=== PATIENT | male | born 1995 | race Caucasian/White ===

== ENCOUNTER 2018-03-27 17:42 | Emergency (ER) | payer BC ==
[~2018-03-27] VITALS: Ht 182.9 cm; Wt 110.8 kg
[2018-03-27 17:50] VITALS: BP 150/69; PULSE 98; TEMP 36.6; O2SAT 99; Ht 182.9 cm; Wt 110.8 kg
--- NOTE | 2018-03-27 18:45 | EMERGENCY ROOM VISIT NOTE ---
ED Visit Note First contact with patient: 18:03 CHIEF COMPLAINT: Right thigh pain HISTORY OF PRESENT ILLNESS: This 22-year-old male patient presents to the emergency department by private vehicle after sustaining an injury to the right posterior thigh/knee approximately 20 minutes ago. Patient states that he was lifting 675 lbs. at the gym, he felt a sudden pain and pop in his right posterior thigh. He believes that this is hamstring injury. Patient states that he had a hamstring strain in the same area last summer, states that he rested for a while and it got better. He did not do any physical therapy. The patient denies any other injuries besides their thigh. The patient denies any swelling or bruising. There is pain with walking, flexing and extending the knee. They rate the pain as constant, throbbing and 6/10. The patient states they are able to walk on it. No numbness or tingling. He denies any pain in the ankle, knee, or hip joint. He denies any other injuries. Patient states he is from [facility] in [facility] [employer] [facility] for graduation weekend. REVIEW OF SYSTEMS: A 6 system review of systems was completed with positives and pertinent negatives listed in the HPI. ALLERGIES: No known allergies MEDICATIONS: No active medications. PMH: No significant past medical or surgical history. SOCIAL HISTORY: Lives at home. Denies tobacco use, denies alcohol or recreational drug use. PHYSICAL EXAM: Vital Signs: Reviewed Nurse's notes, vital signs stable. GENERAL : Pleasant and cooperative, no acute distress, but appears in pain, well- developed, well-nourished. MENTAL STATUS: Alert, oriented to person place and time, and cooperative. MUSCULOSKELETAL: The right posterior thigh is tender on the lateral aspect just proximal to the knee joint. There is no obvious swelling. There is no erythema or ecchymosis. The right knee is not swollen. There is no joint effusion present. The patient is tender with flexion and extension of the knee. There is no joint line tenderness. Passive range of motion of the knee and hip without any pain. Strength of the quads is 5/5 and hamstrings is 4/5. There is no pain or instability with varus and valgus stressing. The foot and toes are warm and well-perfused. Dorsalis pedis pulse 2+. Sensation to pain and light touch is intact. Capillary refill less than 2 seconds. IMAGING: R KNEE 1 OR 2 VIEWS ROUTINE CLINICAL HISTORY: 22 years-old Male presenting with right posterior knee pain while lifting weights, eval fx. TECHNIQUE: Frontal and lateral views of the right knee were obtained. COMPARISON: None. FINDINGS: Knee joint congruent. No large knee joint effusion. No acute fracture or malalignment. No advanced degenerative change. No radiographic soft tissue abnormality. IMPRESSION: No acute osseous injury. ----- R EXTREMITY NONVASCULAR LIMITED CLINICAL HISTORY: 22 years-old Male presenting with eval hamstring tear. TECHNIQUE: Real-time grayscale Doppler ultrasound imaging of the right upper leg was performed for a focused evaluation at the site of clinical concern at the hamstring muscle complex. Color Doppler ultrasound imaging was also performed. COMPARISON: None. FINDINGS: No sonographic evidence of fluid collection or hyperemia. Normal sonographic appearance of the musculature. No edema. IMPRESSION: 1. No sonographic abnormality of the right hamstring muscle bellies. EMERGENCY DEPARTMENT COURSE: I examined the patient. X-rays of the right knee were reviewed by myself and read by radiology and reveal no acute bony abnormality. An ultrasound was performed to evaluate for hamstring injury, which also appears unremarkable. The patient was placed in an Daniel wrap to the right thigh under my direction and the position was satisfactory. The patient was instructed on the use of crutches. Patient was encouraged to follow closely with his primary care provider for a referral to orthopedic surgery once he returns home to [place]. He was also given strict return precautions should his symptoms worsen, he verbalized understanding. The patient was discharged home in good condition. Current/Historical Medications No Active Prescriptions or Reported Meds Allergies Coded Allergies: No Known Allergies (Unverified , 03/27/18) Vital Signs Date Time Temp Pulse Resp B/P (MAP) Pulse Ox O2 Delivery O2 Flow Rate FiO2 03/27/18 17:50 36.6 98 20 150/69 99 Room Air Departure Information Impression Primary Impression: Right hamstring muscle strain Dispostion Home / Self-Care Condition GOOD Prescriptions No Active Prescriptions or Reported Meds Referrals No Doctor, Assigned (PCP) Patient Instructions ED Strain Muscle Ext, [facility] Additional Instructions You have been treated in the Emergency Department for your right thigh pain. Imaging studies have ruled out any emergent causes for your symptoms which would warrant admission or surgery. There is no evidence of hamstring tear on your ultrasound today. If you continue to have symptoms, you may need to have an MRI of the leg for further evaluation. Wear the Daniel wrap for support to the right thigh. You may also get a support sleeve for your thigh if you prefer. Use the crutches to stay off of the leg for the next 4-5 days until you are able to follow-up with an orthopedic surgeon. For pain control, you can use the following [id number] medicines (if >12 yo): - Regular strength (325mg/tab) Tylenol (acetaminophen) 2 tabs every 4-6 hours as needed. Do not exceed 10 tablets in a 24 hour period. Avoid taking more than 3000 mg of Tylenol per day. This includes any other sources of acetaminophen you may take on a regular basis. - Regular strength (200 mg/tab) Advil (ibuprofen) 3 tabs every 6-8 hours as needed. Do not exceed a dose of 2400 mg per day. Drink plenty of fluids to stay well hydrated. Follow-up with your primary care provider and discuss referral to a local orthopedic surgeon for further management of your right thigh injury. You may also benefit from physical therapy, which can be set up by your provider. Please return to the emergency department for any worsening symptoms, including severe worsening pain, new numbness or weakness of the leg, discoloration of the leg, fever/chills, or any other concerns. Problem Qualifiers Primary Impression: Right hamstring muscle strain Encounter type: initial encounter Qualified Codes: S76.311A - Strain of muscle, fascia and tendon of the posterior muscle group at thigh level, right thigh, initial encounter
--- NOTE | 2018-03-27 19:01 | DIAGNOSTIC IMAGING REPORT ---
R KNEE 1 OR 2 VIEWS ROUTINE CLINICAL HISTORY: 22 years-old Male presenting with right posterior knee pain while lifting weights, eval fx. TECHNIQUE: Frontal and lateral views of the right knee were obtained. COMPARISON: None. FINDINGS: Knee joint congruent. No large knee joint effusion. No acute fracture or malalignment. No advanced degenerative change. No radiographic soft tissue abnormality. IMPRESSION: No acute osseous injury. Electronically signed by: Jose M Gonzales M.D. 03/27/2018 6:59 PM Dictated Date/Time: 03/27/2018 6:58 PM
--- NOTE | 2018-03-27 20:41 | DIAGNOSTIC IMAGING REPORT ---
R EXTREMITY NONVASCULAR LIMITED CLINICAL HISTORY: 22 years-old Male presenting with eval hamstring tear. TECHNIQUE: Real-time grayscale Doppler ultrasound imaging of the right upper leg was performed for a focused evaluation at the site of clinical concern at the hamstring muscle complex. Color Doppler ultrasound imaging was also performed. COMPARISON: None. FINDINGS: No sonographic evidence of fluid collection or hyperemia. Normal sonographic appearance of the musculature. No edema. IMPRESSION: 1. No sonographic abnormality of the right hamstring muscle bellies. Electronically signed by: Jose M Gonzales M.D. 03/27/2018 8:40 PM Dictated Date/Time: 03/27/2018 8:39 PM
== END 2018-03-27 21:41 | disposition home or self-care (01) ==
LOC: C.EDB 17:45 → C.EDD 21:41
DX: S76.311A Strain of muscle, fascia and tendon of the posterior muscle group at thigh level, right thigh, initial encounter (principal); X50.0XXA Overexertion from strenuous movement or load, initial encounter; Y93.B3 Activity, free weights; Y92.39 Other specified sports and athletic area as the place of occurrence of the external cause